=== PATIENT | female | born 1990 | race Two or more races ===

== ENCOUNTER 2023-08-11 14:40 | Emergency (ER) | payer SELFPAY ==
[~2023-08-11] VITALS: Ht 165.1 cm; Wt 71.0 kg
[2023-08-11] MEDS ORDERED: diphenhydrAMINE HCL 50 MG CAPSULE PO ONE (16:00)
[2023-08-11] MEDS ORDERED: FAMOTIDINE (20 MG) 20 MG TABLET PO ONE (16:00)
[2023-08-11] MEDS ORDERED: ONDANSETRON 4 MG TAB.RAPDIS PO ONE (16:00)
[2023-08-11] MEDS ORDERED: diphenhydrAMINE HCL 50 MG CAPSULE ONE ×2 (16:11→18:24)
[2023-08-11] MEDS ORDERED: ONDANSETRON 4 MG TAB.RAPDIS ONE (16:12)
[2023-08-11] MEDS ORDERED: FAMOTIDINE (20 MG) 20 MG TABLET ONE (16:12)
[2023-08-11] MEDS ORDERED: IV NS 0.9% 1,000 ML BAG IV ONE (17:00)
[2023-08-11] MEDS ORDERED: diphenhydrAMINE HCL 50 MG/ML VIAL ONE (18:30)
[2023-08-11] MEDS ORDERED: diphenhydrAMINE HCL 50 MG/ML VIAL IM ONE (18:30)
[2023-08-11] MEDS ORDERED: CETI-90 PO (18:50)
[2023-08-11] MEDS ORDERED: ONDA4TAB5 PO (18:50)
[2023-08-11 18:55] VITALS: BP 120/73; TEMP 98.4; O2SAT 97
== END 2023-08-11 18:56 | disposition home or self-care (01) ==
LOC: ER 14:52
DX: L29.9 Pruritus, unspecified (principal); R11.2 Nausea with vomiting, unspecified; Z91.011 Allergy to milk products
CPT/HCPCS: 99283; 96360; 96372; Q0163; J1200; J7030; Q0162